=== PATIENT | female | born 1980 | race Caucasian/White ===

== ENCOUNTER 2019-09-12 17:57 | Inpatient (IN) | payer SELFPAY ==
[~2019-09-12] VITALS: Ht 160 cm; Wt 65.7 kg
[2019-09-12] MEDS ORDERED: PIPERACILLIN/TAZOBACTAM 3.375 GM in IV NORMAL SALINE 50ML 50 ML IV ONE (18:15)
[2019-09-12] MEDS ORDERED: IV NORMAL SALINE 1000ML BAG 1,000 ML IV ONE (18:15)
--- NOTE | 2019-09-12 18:24 | PHYS DOC ---
General Adult EDM: Chief Complaint: ABSCESS HPI: HPI: Patient is a 39 year old female IV drug user who presents to the ED today with an abscess on the left biceps that she noted a week ago. Patient reports using methamphetamine. Denies any fever. Review of Systems: Review of Systems: Constitutional: Denies fever or chills. [] Eyes: Denies change in visual acuity. [] HENT: Denies nasal congestion or sore throat. [] Respiratory: Denies cough or shortness of breath. [] Cardiovascular: Denies chest pain or edema. [] GI: Denies abdominal pain, nausea, vomiting, bloody stools or diarrhea. [] : Denies dysuria. [] Musculoskeletal: Denies back pain or joint pain. [] Integument: Reports abscess to the left biceps Neurologic: Denies headache, focal weakness or sensory changes. [] Psychiatric: Denies depression or anxiety. [] Heart Score: Risk Factors: Risk Factors: DM, Current or recent (<one month) smoker, HTN, HLP, family history of CAD, obesity. Risk Scores: Score 0 - 3: 2.5% MACE over next 6 weeks - Discharge Home Score 4 - 6: 20.3% MACE over next 6 weeks - Admit for Clinical Observation Score 7 - 10: 72.7% MACE over next 6 weeks - Early Invasive Strategies Current Medications: Current Medications Medications (Trade) Dose Ordered Sig/Corina Start Time Stop Time Status Last Admin Dose Admin Piperacillin Sod/ Tazobactam Sod 3.375 gm/Sodium Chloride 50 ml @ 100 mls/hr 1X ONCE 09/12/19 18:15 09/12/19 18:44 UNV Sodium Chloride 1,000 ml @ 1,000 mls/hr 1X ONCE 09/12/19 18:15 09/12/19 19:14 UNV Vancomycin HCl (Vanco Per Pharmacy) 1 each PRN DAILY PRN 09/12/19 18:15 UNV Physical Exam: PE: Constitutional: Well developed, well nourished, no acute distress, non-toxic appearance. [] HENT: Normocephalic, atraumatic, bilateral external ears normal, oropharynx moist, no oral exudates, nose normal. [] Eyes: PERRLA, EOMI, conjunctiva normal, no discharge. [] Neck: Normal range of motion, no tenderness, supple, no stridor. [] Cardiovascular:Heart rate regular rhythm, no murmur [] Lungs & Thorax: Bilateral breath sounds clear to auscultation [] Abdomen: Bowel sounds normal, soft, no tenderness, no masses, no pulsatile masses. [] Skin: Left biceps with an open wound approximately 3 x 3 cm with surrounding approximately 3 cm of cellulitis. Patient noted for multiple scabbed up regions throughout the left upper extremity, she admits to IV drug use of methamphetamine. +2 left radial pulse. Cap refill less than 2 seconds to left fingers. Back: No tenderness, no CVA tenderness. [] Extremities: No tenderness, no cyanosis, no clubbing, ROM intact, no edema. [] Neurologic: Alert and oriented X 3, normal motor function, normal sensory function, no focal deficits noted. [] Psychologic: tearful, flat affect. EKG: EKG: [] Radiology/Procedures: Radiology/Procedures: []PROCEDURE: FOREARM LEFT FOREARM LEFT, HUMERUS LEFT Clinical Indication: Reason: abscess, IV drug user / Comparison: None. Findings: There is no acute bone abnormality. The wrist, elbow, and shoulder joints appear intact. There is soft tissue swelling and subcutaneous edema and skin thickening with a small soft tissue defect centrally of the lateral distal upper arm. No radiopaque foreign body is identified. Left upper lung is clear. IMPRESSION: Along the lateral distal humerus there is subcutaneous edema and soft tissue swelling. There is skin thickening with a small soft tissue defect centrally. No radiopaque foreign body is seen. Electronically signed by: Chinmay Martinez MD (09/12/2019 6:41 PM) [facility] DICTATED and SIGNED BY: CHINMAY MARTINEZ MD DATE: 09/12/19 184 PROCEDURE: VENOUS UPPER EXTREMITY LEFT Left upper extremity venous Doppler ultrasound History: Reason: abscess, IV drug user / Comparison: None. Procedure: Color flow Doppler, Doppler spectral analysis, and 2D images are obtained with and without compression in the jugular vein, subclavian vein, axillary vein, brachial vein, radial vein, ulnar vein, and basilic and cephalic veins. Findings: At the area of interest, antecubital the subcutaneous tissues are echogenic with probably minimally increased vascularity. There is mild subcutaneous edema. There is skin thickening. There are punctate echogenicities that are dermal or just subdermal that may be subcutaneous air. No organized fluid collection is seen. There is normal color flow, augmentation, and compressibility of all visualized vein segments. No evidence of deep venous thrombus is present. IMPRESSION: 1. In the antecubital region there is skin thickening and the subcutaneous tissues are echogenic with mild subcutaneous edema. There appear to be foci of dermal and subdermal air. No organized abscess is seen. 2. No evidence of left upper extremity deep venous thrombosis. Electronically signed by: Chinmay Martinez MD (09/12/2019 7:29 PM) [facility] DICTATED and SIGNED BY: CHINMAY MARTINEZ MD DATE: 09/12/191928 Course & Med Decision Making: Course & Med Decision Making Pertinent Labs and Imaging studies reviewed. (See chart for details) This is a 39-year-old female patient who presents to the ED today with complaints of an open infected abscess on the left biceps from IV drug use of methamphetamine. She also noted for multiple cellulitis regions on the left u pper extremity. Wound was cultured. Patient was started on sepsis protocol including IV antibiotics and IV fluids. CBC with a normal WBC, CMP with no acute findings, lactic is normal. Vitals are stable. X-ray of the left humerus and left forearm are negative for any acute findings. Venous Doppler of the left upper extremity negative for DVT noted for drainable abscess Spoke with Dr. Edge who accepted patient for admission Carlos Disclaimer: Carlos Disclaimer: This electronic medical record was generated, in whole or in part, using a voice recognition dictation system. 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
[2019-09-12 18:30] LABS: BASO # 0.1 x10^3/uL (0.0-0.2); BASO % 1 % (0-3); EOS # 0.1 x10^3/uL (0.0-0.7); EOS % 1 % (0-3); HEMATOCRIT 27.4 % (36.0-47.0); LYMPH # 2.2 x10^3/uL (1.0-4.8); LYMPH % 35 % (24-48); MEAN CORPUSCULAR HEMOGLOBIN 24 pg (25-35); MEAN CORPUSCULAR HGB CONC 33 g/dL (31-37); MEAN CORPUSCULAR VOLUME 73 fL (79-100); MONO # 0.5 x10^3/uL (0.0-1.1); MONO % 8 % (0-9); NEUT # 3.6 x10^3/uL (1.8-7.7); NEUT % 56 % (31-73); PLATELET COUNT 421 x10^3/uL (140-400); RED BLOOD COUNT 3.74 x10^6/uL (3.50-5.40); RED CELL DISTRIBUTION WIDTH 18.2 % (11.5-14.5); WHITE BLOOD COUNT 6.4 x10^3/uL (4.0-11.0)
[2019-09-12 18:39] LABS: CALCIUM 8.7 mg/dL (8.5-10.1); CREATININE 0.8 mg/dL (0.6-1.0); GFR 79.4; POTASSIUM 3.8 mmol/L (3.5-5.1)
--- NOTE | 2019-09-12 18:44 | RAD ---
FOREARM LEFT, HUMERUS LEFT Clinical Indication: Reason: abscess, IV drug user / Comparison: None. Findings: There is no acute bone abnormality. The wrist, elbow, and shoulder joints appear intact. There is soft tissue swelling and subcutaneous edema and skin thickening with a small soft tissue defect centrally of the lateral distal upper arm. No radiopaque foreign body is identified. Left upper lung is clear. IMPRESSION: Along the lateral distal humerus there is subcutaneous edema and soft tissue swelling. There is skin thickening with a small soft tissue defect centrally. No radiopaque foreign body is seen. Electronically signed by: Chinmay Darden MD (09/12/2019 6:41 PM) [facility]
[2019-09-12] MEDS ORDERED: VANCOMYCIN 1.5 GM in IV NORMAL SALINE 500ML BAG 500 ML IV ONE (18:45)
[2019-09-12 18:46] LABS: ALBUMIN 3.5 g/dL (3.4-5.0); ALBUMIN/GLOBULIN RATIO 0.8 (1.0-1.7); TOTAL BILIRUBIN 0.1 mg/dL (0.2-1.0); TOTAL PROTEIN 7.9 g/dL (6.4-8.2)
[2019-09-12] MEDS: VANCOMYCIN PER PHARMACY MC PRN ×2 (18:48→20:02)
--- NOTE | 2019-09-12 19:32 | RAD ---
Left upper extremity venous Doppler ultrasound History: Reason: abscess, IV drug user / Comparison: None. Procedure: Color flow Doppler, Doppler spectral analysis, and 2D images are obtained with and without compression in the jugular vein, subclavian vein, axillary vein, brachial vein, radial vein, ulnar vein, and basilic and cephalic veins. Findings: At the area of interest, antecubital the subcutaneous tissues are echogenic with probably minimally increased vascularity. There is mild subcutaneous edema. There is skin thickening. There are punctate echogenicities that are dermal or just subdermal that may be subcutaneous air. No organized fluid collection is seen. There is normal color flow, augmentation, and compressibility of all visualized vein segments. No evidence of deep venous thrombus is present. IMPRESSION: 1. In the antecubital region there is skin thickening and the subcutaneous tissues are echogenic with mild subcutaneous edema. There appear to be foci of dermal and subdermal air. No organized abscess is seen. 2. No evidence of left upper extremity deep venous thrombosis. Electronically signed by: Chinmay Darden MD (09/12/2019 7:29 PM) [facility]
[2019-09-12 19:45] LABS: BARBITURATES NEG (NEG); BENZODIAZEPINES NEG (NEG); CANNABINOIDS NEG (NEG); COCAINE NEG (NEG); METHADONE NEG (NEG); OPIATES NEG (NEG); PHENCYCLIDINE NEG (NEG)
[2019-09-12] MEDS ORDERED: ACETAMINOPHEN 325 MG TABLET. PO PRN (19:45)
[2019-09-12] MEDS ORDERED: ONDANSETRON PF 4 MG/2 ML VIAL. IV PRN (19:45)
[2019-09-12 19:49] LABS: AMPHETAMINE/METHAMPHETAMINE POS (NEG)
--- NOTE | 2019-09-12 20:05 | NUR ---
Pharmacy Vancomycin Dosing Note S:Consulted to monitor and dose vancomycin started 09/12/19. O:CARLOS CHAO is a 39 year old F with Cellulitis Sepsis . Height: 5 feet, 3 inches Weight: 68.1 kg [place] Body Weight: 52.40 Adjusted Body Weight: 58.68 Dosing Weight: Actual Other Antibiotics: LABS: Last BUN: Last Creatinine: 0.8 Creatinine Clearance: 86 mL/min Last WBC: 6.4 Last Procalcitonin: Tmax (past 24 hours): 99 Microbiology: I/O: Drug Levels: Last level: on at Last dose given 09/12/19 at 1900 Vancomycin Dosing: Loading Dose: 1500 mg x1 Dosing Weight: Actual Target Trough: 15-20 A: Based on: WEIGHT AND RENAL FUNCTION, VANCOMYCIN 1.5GM IV BOLUS GIVEN. P: 1. Begin Vancomycin 1000 mg IV q12h TOMORROW 2. Follow up Trough level on 09/14/19 at 0630 3. Pharmacy will continue to monitor, follow and adjust therapy as needed. [facility], 09/12/192005
[2019-09-12 21:00] VITALS: BP 147/107
[2019-09-12 22:46] VITALS: BP 138/85
[2019-09-13 02:19] VITALS: BP 142/89
[2019-09-13] MEDS ORDERED: VANCOMYCIN 1 GM in IV NORMAL SALINE 250ML 250 ML IV SCH (07:00)
[2019-09-13 07:33] LABS: BASO % 1 % (0-3); EOS # 0.1 x10^3/uL (0.0-0.7); EOS % 2 % (0-3); HEMATOCRIT 26.9 % (36.0-47.0); HEMOGLOBIN 8.5 g/dL (12.0-15.5); LYMPH # 2.5 x10^3/uL (1.0-4.8); LYMPH % 46 % (24-48); MEAN CORPUSCULAR HEMOGLOBIN 24 pg (25-35); MEAN CORPUSCULAR HGB CONC 32 g/dL (31-37); MEAN CORPUSCULAR VOLUME 75 fL (79-100); MONO # 0.4 x10^3/uL (0.0-1.1); MONO % 7 % (0-9); NEUT # 2.4 x10^3/uL (1.8-7.7); NEUT % 45 % (31-73); PLATELET COUNT 353 x10^3/uL (140-400); RED BLOOD COUNT 3.61 x10^6/uL (3.50-5.40); RED CELL DISTRIBUTION WIDTH 18.3 % (11.5-14.5); WHITE BLOOD COUNT 5.4 x10^3/uL (4.0-11.0)
[2019-09-13 07:59] VITALS: BP 122/77
--- NOTE | 2019-09-13 08:46 | PDOC1 ---
History and Physical Date of Admission Date of Admission DATE: 09/13/19 TIME: 08:44 Identification/Chief Complaint Chief Complaint Left arm pain Source Source: Patient History of Present Illness History of Present Illness Ms Yanez is a 39 yo F w/ PMHx methamphetamine abuse, smoker who presents to the ED 09/12/2019 with complaints of an open infected abscess on the left biceps from IV drug use of methamphetamine. She also noted for multiple cellulitis regions on the left upper extremity. Wound was cultured. Patient was started on sepsis protocol including IV antibiotics and IV fluids. CBC with a normal WBC, CMP with no acute findings, lactic is normal. Vitals are stable. X-ray of the left humerus and left forearm are negative for any acute findings. Venous Doppler of the left upper extremity negative for DVT noted for drainable abscess. She is feeling much better, wound draining, open. She wishes to leave the hospital on oral antibiotics. I have advised her to await wound care evaluation. She denies any IV methamphetamine use states she smokes it and had been clean for 11 years until recently she had some difficulties. She did tell her triage nurse that she was shooting methamphetamine however. Past Medical History Cardiovascular: No pertinent hx Pulmonary: No pertinent hx Psych: Addictions Past Surgical History Past Surgical History: Tubal Ligation Family History Family History: Heart Disease, High Cholestrol, Hypertension Social History Smoke: 1 pack per day ALCOHOL: none Drugs: Crystal meth Current Problem List Problem List Problems Medical Problems: (1) Abscess of upper extremity Status: Acute (2) Methamphetamine use Status: Acute Current Medications Current Medications Current Medications Piperacillin Sod/ Tazobactam Sod 3.375 gm/Sodium Chloride 50 ml @ 100 mls/hr 1X ONCE IV Last administered on 09/12/19at 18:15; Start 09/12/19 at 18:15; Stop 09/12/19 at 18:44; Status DC Vancomycin HCl (Vanco Per Pharmacy) 1 each PRN DAILY PRN MC SEE COMMENTS Last administered on 09/12/19at 20:02; Start 09/12/19 at 18:15 Sodium Chloride 1,000 ml @ 1,000 mls/hr 1X ONCE IV Last administered on 09/12/19at 18:41; Start 09/12/19 at 18:15; Stop 09/12/19 at 19:14; Status DC Vancomycin HCl 1.5 gm/Sodium Chloride 500 ml @ 250 mls/hr 1X ONCE IV Last administered on 09/12/19at 18:45; Start 09/12/19 at 18:45; Stop 09/12/19 at 20:44; Status DC Ondansetron HCl (Zofran) 4 mg PRN Q8HRS PRN IV NAUSEA/VOMITING; Start 09/12/19 at 19:45; Stop 09/13/19 at 19:44 Acetaminophen (Tylenol) 650 mg PRN Q4HRS PRN PO FEVER > 100.3'F; Start 09/12/19 at 19:45; Stop 09/13/19 at 19:44 Vancomycin HCl 1 gm/Sodium Chloride 250 ml @ 250 mls/hr Q12H IV ; Start 09/13/19 at 07:00 Vancomycin HCl (Vancomycin Trough Level) 1 each 1X ONCE MC ; Start 09/14/19 at 06:30; Stop 09/14/19 at 06:31 Allergies Allergies: Coded Allergies: aspirin (Verified Allergy, Intermediate, 09/12/19) codeine (Verified Allergy, Intermediate, 09/12/19) ROS General: No: Chills, Night Sweats, Fatigue, Malaise, Appetite, Other PSYCHOLOGICAL ROS: No: Anxiety, Behavioral Disorder, Concentration difficultie, Decreased libido, Depression, Disorientation, Hallucinations, Hostility, Irritablity, Memory difficulties, Mood Swings, Obsessive thoughts, Physical abuse, Sexual abuse, Sleep disturbances, Suicidal ideation, Other Eyes: No Blurry vision, No Decreased vision, No Double vision, No Dry eyes, No Excessive tearing, No Eye Pain, No Itchy Eyes, No Loss of vision, No Photophobia, No Scotomata, No Uses contacts, No Uses glasses, No Other HEENT: No: Heacaches, Visual Changes, Hearing change, Nasal congestion, Nasal discharge, Oral lesions, Sinus pain, Sore Throat, Epistaxis, Sneezing, Snoring, Tinnitus, Vertigo, Vocal changes, Other ALLERGY AND IMMUNOLOGY: No: Hives, Insect Bite Sensitivity, Itchy/Watery Eyes, Nasal Congestion, Post Nasal Drip, Seasonal Allergies, Other Hematological and Lymphatic: No: Bleeding Problems, Blood Clots, Blood Transfusions, Brusing, Night Sweats, Pallor, Swollen Lymph Nodes, Other ENDOCRINE: No: Breast Changes, Galactorrhea, Hair Pattern Changes, Hot Flashes, Malaise/lethargy, Mood Swings, Palpitations, Polydipsia/polyuria, Skin Changes, Temperature Intolerance, Unexpected Weight Changes, Other Breast: No New/Changing Breast Lumps, No Nipple changes, No Nipple discharge, No Other Respiratory: No: Cough, Hemoptysis, Orthopnea, Pleuritic Pain, Shortness of breath, SOB with excertion, Sputum Changes, Stridor, Tachypnea, Wheezing, Other Cardiovascular: No Chest Pain, No Palpitations, No Orthopnea, No Paroxysmal Noc. Dyspnea, No Edema, No Lt Headedness, No Other Gastrointestinal: No Nausea, No Vomiting, No Abdominal Pain, No Diarrhea, No Constipation, No Melena, No Hematochezia, No Other Genitourinary: No Dysuria, No Frequency, No Incontinence, No Hematuria, No Retention, No Discharge, No Urgency, No Pain, No Flank Pain, No Other, No , No , No , No , No , No , No Musculoskeletal: No Gait Disturbance, No Joint Pain, No Joint Stiffness, No Joint Swelling, No Muscle Pain, No Muscular Weakness, No Pain In:, No Swelling In:, No Other Neurological: No Behavorial Changes, No Bowel/Bladder ControlChng, No Confusion, No Dizziness, No Gait Disturbance, No Headaches, No Impaired Coord/balance, No Memory Loss, No Numbness/Tingling, No Seizures, No Speech Problems, No Tremors, No Visual Changes, No Weakness, No Other Skin: Yes Rash, Yes Skin Lesion Changes; No Dry Skin, No Eczema, No Hair Changes, No Lumps, No Mole Changes, No Mottling, No Nail Changes, No Pruritus, No Other, No Acne Physical Exam General: Alert, Oriented X3, Cooperative, No acute distress HEENT: Atraumatic, PERRLA, EOMI, Mucous membr. moist/pink Lungs: Clear to auscultation, Normal air movement Heart: S1S2, RRR, no thrills, no rubs, no gallops, no murmurs Abdomen: Normal bowel sounds, Soft, No tenderness, No hepatosplenomegaly, No masses Rectal Exam: not examined Extremities: No clubbing, No cyanosis, No edema, Normal pulses, Other (Erythema 3x3 with central open wound in left antecubital fossa near biceps tendon, irrigate, no purulent discharge.) Skin: Other (Multiple sores over majority of her body in various stages of healing) Neuro: Normal gait, Normal speech, Strength at 5/5 X4 ext, Normal tone, Sensation intact, Cranial nerves 3-12 NL, Reflexes 2+ Psych/Mental Status: Mental status NL, Mood NL Vitals Vitals Vital Signs Date Time Temp Pulse Resp B/P (MAP) Pulse Ox O2 Delivery O2 Flow Rate FiO2 09/13/19 07:59 97.9 65 18 122/77 (92) 98 Room Air 97.9 Labs Labs Laboratory Tests Test 09/12/19 18:20 09/12/19 19:30 09/12/19 19:33 09/13/19 06:35 White Blood Count 6.4 x10^3/uL (4.0-11.0) 5.4 x10^3/uL (4.0-11.0) Red Blood Count 3.74 x10^6/uL (3.50-5.40) 3.61 x10^6/uL (3.50-5.40) Hemoglobin 9.0 g/dL (12.0-15.5) 8.5 g/dL (12.0-15.5) Hematocrit 27.4 % (36.0-47.0) 26.9 % (36.0-47.0) Mean Corpuscular Volume 73 fL (79-100) 75 fL (79-100) Mean Corpuscular Hemoglobin 24 pg (25-35) 24 pg (25-35) Mean Corpuscular Hemoglobin Concent 33 g/dL (31-37) 32 g/dL (31-37) Red Cell Distribution Width 18.2 % (11.5-14.5) 18.3 % (11.5-14.5) Platelet Count 421 x10^3/uL (140-400) 353 x10^3/uL (140-400) Neutrophils (%) (Auto) 56 % (31-73) 45 % (31-73) Lymphocytes (%) (Auto) 35 % (24-48) 46 % (24-48) Monocytes (%) (Auto) 8 % (0-9) 7 % (0-9) Eosinophils (%) (Auto) 1 % (0-3) 2 % (0-3) Basophils (%) (Auto) 1 % (0-3) 1 % (0-3) Neutrophils # (Auto) 3.6 x10^3/uL (1.8-7.7) 2.4 x10^3/uL (1.8-7.7) Lymphocytes # (Auto) 2.2 x10^3/uL (1.0-4.8) 2.5 x10^3/uL (1.0-4.8) Monocytes # (Auto) 0.5 x10^3/uL (0.0-1.1) 0.4 x10^3/uL (0.0-1.1) Eosinophils # (Auto) 0.1 x10^3/uL (0.0-0.7) 0.1 x10^3/uL (0.0-0.7) Basophils # (Auto) 0.1 x10^3/uL (0.0-0.2) 0.0 x10^3/uL (0.0-0.2) Sodium Level 140 mmol/L (136-145) Potassium Level 3.8 mmol/L (3.5-5.1) Chloride Level 105 mmol/L (98-107) Carbon Dioxide Level 23 mmol/L (21-32) Anion Gap 12 (6-14) Blood Urea Nitrogen 13 mg/dL (7-20) Creatinine 0.8 mg/dL (0.6-1.0) Estimated GFR (Cockcroft-Gault) 79.4 BUN/Creatinine Ratio 16 (6-20) Glucose Level 86 mg/dL (70-99) Lactic Acid Level 1.0 mmol/L (0.4-2.0) Calcium Level 8.7 mg/dL (8.5-10.1) Total Bilirubin 0.1 mg/dL (0.2-1.0) Aspartate Amino Transf (AST/SGOT) 14 U/L (15-37) Alanine Aminotransferase (ALT/SGPT) 13 U/L (14-59) Alkaline Phosphatase 98 U/L (46-116) Total Protein 7.9 g/dL (6.4-8.2) Albumin 3.5 g/dL (3.4-5.0) Albumin/Globulin Ratio 0.8 (1.0-1.7) Procalcitonin < 0.10 ng/mL (0.00-0.10) Urine Opiates Screen Neg (NEG) Urine Methadone Screen Neg (NEG) Urine Barbiturates Neg (NEG) Urine Phencyclidine Screen Neg (NEG) Urine Amphetamine/Methamphetamine Pos (NEG) Urine Benzodiazepines Screen Neg (NEG) Urine Cocaine Screen Neg (NEG) Urine Cannabinoids Screen Neg (NEG) Urine Ethyl Alcohol Neg (NEG) Bedside Urine HCG, Qualitative Hcg negative (Negative) Laboratory Tests Test 09/12/19 18:20 09/12/19 19:30 09/12/19 19:33 09/13/19 06:35 White Blood Count 6.4 x10^3/uL (4.0-11.0) 5.4 x10^3/uL (4.0-11.0) Red Blood Count 3.74 x10^6/uL (3.50-5.40) 3.61 x10^6/uL (3.50-5.40) Hemoglobin 9.0 g/dL (12.0-15.5) 8.5 g/dL (12.0-15.5) Hematocrit 27.4 % (36.0-47.0) 26.9 % (36.0-47.0) Mean Corpuscular Volume 73 fL (79-100) 75 fL (79-100) Mean Corpuscular Hemoglobin 24 pg (25-35) 24 pg (25-35) Mean Corpuscular Hemoglobin Concent 33 g/dL (31-37) 32 g/dL (31-37) Red Cell Distribution Width 18.2 % (11.5-14.5) 18.3 % (11.5-14.5) Platelet Count 421 x10^3/uL (140-400) 353 x10^3/uL (140-400) Neutrophils (%) (Auto) 56 % (31-73) 45 % (31-73) Lymphocytes (%) (Auto) 35 % (24-48) 46 % (24-48) Monocytes (%) (Auto) 8 % (0-9) 7 % (0-9) Eosinophils (%) (Auto) 1 % (0-3) 2 % (0-3) Basophils (%) (Auto) 1 % (0-3) 1 % (0-3) Neutrophils # (Auto) 3.6 x10^3/uL (1.8-7.7) 2.4 x10^3/uL (1.8-7.7) Lymphocytes # (Auto) 2.2 x10^3/uL (1.0-4.8) 2.5 x10^3/uL (1.0-4.8) Monocytes # (Auto) 0.5 x10^3/uL (0.0-1.1) 0.4 x10^3/uL (0.0-1.1) Eosinophils # (Auto) 0.1 x10^3/uL (0.0-0.7) 0.1 x10^3/uL (0.0-0.7) Basophils # (Auto) 0.1 x10^3/uL (0.0-0.2) 0.0 x10^3/uL (0.0-0.2) Sodium Level 140 mmol/L (136-145) Potassium Level 3.8 mmol/L (3.5-5.1) Chloride Level 105 mmol/L (98-107) Carbon Dioxide Level 23 mmol/L (21-32) Anion Gap 12 (6-14) Blood Urea Nitrogen 13 mg/dL (7-20) Creatinine 0.8 mg/dL (0.6-1.0) Estimated GFR (Cockcroft-Gault) 79.4 BUN/Creatinine Ratio 16 (6-20) Glucose Level 86 mg/dL (70-99) Lactic Acid Level 1.0 mmol/L (0.4-2.0) Calcium Level 8.7 mg/dL (8.5-10.1) Total Bilirubin 0.1 mg/dL (0.2-1.0) Aspartate Amino Transf (AST/SGOT) 14 U/L (15-37) Alanine Aminotransferase (ALT/SGPT) 13 U/L (14-59) Alkaline Phosphatase 98 U/L (46-116) Total Protein 7.9 g/dL (6.4-8.2) Albumin 3.5 g/dL (3.4-5.0) Albumin/Globulin Ratio 0.8 (1.0-1.7) Procalcitonin < 0.10 ng/mL (0.00-0.10) Urine Opiates Screen Neg (NEG) Urine Methadone Screen Neg (NEG) Urine Barbiturates Neg (NEG) Urine Phencyclidine Screen Neg (NEG) Urine Amphetamine/Methamphetamine Pos (NEG) Urine Benzodiazepines Screen Neg (NEG) Urine Cocaine Screen Neg (NEG) Urine Cannabinoids Screen Neg (NEG) Urine Ethyl Alcohol Neg (NEG) Bedside Urine HCG, Qualitative Hcg negative (Negative) Images Images Left arm XR: There is no acute bone abnormality. The wrist, elbow, and shoulder joints appear intact. There is soft tissue swelling and subcutaneous edema and skin thickening with a small soft tissue defect centrally of the lateral distal upper arm. No radiopaque foreign body is identified. Left upper lung is clear. IMPRESSION: Along the lateral distal humerus there is subcutaneous edema and soft tissue swelling. There is skin thickening with a small soft tissue defect centrally. No radiopaque foreign body is seen. Left upper extremity venous Doppler ultrasound: At the area of interest, antecubital the subcutaneous tissues are echogenic with probably minimally increased vascularity. There is mild subcutaneous edema. There is skin thickening. There are punctate echogenicities that are dermal or just subdermal that may be subcutaneous air. No organized fluid collection is seen. There is normal color flow, augmentation, and compressibility of all visualized vein segments. No evidence of deep venous thrombus is present. IMPRESSION: 1. In the antecubital region there is skin thickening and the subcutaneous tissues are echogenic with mild subcutaneous edema. There appear to be foci of dermal and subdermal air. No organized abscess is seen. 2. No evidence of left upper extremity deep venous thrombosis. VTE Prophylaxis Ordered VTE Prophylaxis Devices: No VTE Pharmacological Prophylaxi: Yes Assessment/Plan Assessment/Plan A/P: Cellulitis and abscess of left forearm - no pocket, no DVT, the abscess is open wound given it is less than 4 x 4 cm she can be instructed on local wound care and transition from vancomycin and Zosyn to oral Augmentin + Bactrim Smoker -counseled on cessation, offered nicotine patch FEN - Regular diet PPX - lovenox FULL CODE Dispo -patient for overnight antibiotics, I agree with patient outpatient th erapy may be adequate, though with her methamphetamine use and lifestyle she is at high risk for recurrent infections therefore Bactrim to cover for MRSA is appropriate Augmentin to cover for strep. MILI COTTER MD September 13, 2019 08:46
[2019-09-13] MEDS ORDERED: ONDANSETRON PF 4 MG/2 ML VIAL. IV PRN (09:00)
[2019-09-13] MEDS ORDERED: SMZ/TMP 800/160MG TABLET. PO SCH (11:30)
[2019-09-13] MEDS ORDERED: AMOXICILLIN/K CLAV 875/125MG TABLET. PO SCH (11:30)
[2019-09-13] MEDS ORDERED: AMOX1TAB11 PO (11:40)
[2019-09-13] MEDS ORDERED: Smz/Tmp 800/160MG PO (11:40)
--- NOTE | 2019-09-13 11:42 | PDOC3 ---
Discharge Summary Visit Information Date of Admission: September 12, 2019 Date of Discharge: September 13, 2019 Admitting Diagnosis: Abscess of LUE Final Diagnosis Problems Medical Problems: (1) Abscess of upper extremity Status: Acute (2) Methamphetamine use Status: Acute Brief Hospital Course Allergies Allergies Coded Allergies Type Severity Reaction Last Updated Verified aspirin Allergy Intermediate 09/12/19 Yes codeine Allergy Intermediate 09/12/19 Yes Vital Signs Vital Signs Date Time Temp Pulse Resp B/P (MAP) Pulse Ox O2 Delivery O2 Flow Rate FiO2 09/13/19 07:59 97.9 65 18 122/77 (92) 98 Room Air 97.9 Lab Results Laboratory Tests Test 09/12/19 18:20 09/12/19 19:30 09/12/19 19:33 09/13/19 06:35 White Blood Count 6.4 x10^3/uL (4.0-11.0) 5.4 x10^3/uL (4.0-11.0) Red Blood Count 3.74 x10^6/uL (3.50-5.40) 3.61 x10^6/uL (3.50-5.40) Hemoglobin 9.0 g/dL (12.0-15.5) 8.5 g/dL (12.0-15.5) Hematocrit 27.4 % (36.0-47.0) 26.9 % (36.0-47.0) Mean Corpuscular Volume 73 fL (79-100) 75 fL (79-100) Mean Corpuscular Hemoglobin 24 pg (25-35) 24 pg (25-35) Mean Corpuscular Hemoglobin Concent 33 g/dL (31-37) 32 g/dL (31-37) Red Cell Distribution Width 18.2 % (11.5-14.5) 18.3 % (11.5-14.5) Platelet Count 421 x10^3/uL (140-400) 353 x10^3/uL (140-400) Neutrophils (%) (Auto) 56 % (31-73) 45 % (31-73) Lymphocytes (%) (Auto) 35 % (24-48) 46 % (24-48) Monocytes (%) (Auto) 8 % (0-9) 7 % (0-9) Eosinophils (%) (Auto) 1 % (0-3) 2 % (0-3) Basophils (%) (Auto) 1 % (0-3) 1 % (0-3) Neutrophils # (Auto) 3.6 x10^3/uL (1.8-7.7) 2.4 x10^3/uL (1.8-7.7) Lymphocytes # (Auto) 2.2 x10^3/uL (1.0-4.8) 2.5 x10^3/uL (1.0-4.8) Monocytes # (Auto) 0.5 x10^3/uL (0.0-1.1) 0.4 x10^3/uL (0.0-1.1) Eosinophils # (Auto) 0.1 x10^3/uL (0.0-0.7) 0.1 x10^3/uL (0.0-0.7) Basophils # (Auto) 0.1 x10^3/uL (0.0-0.2) 0.0 x10^3/uL (0.0-0.2) Sodium Level 140 mmol/L (136-145) Potassium Level 3.8 mmol/L (3.5-5.1) Chloride Level 105 mmol/L (98-107) Carbon Dioxide Level 23 mmol/L (21-32) Anion Gap 12 (6-14) Blood Urea Nitrogen 13 mg/dL (7-20) Creatinine 0.8 mg/dL (0.6-1.0) Estimated GFR (Cockcroft-Gault) 79.4 BUN/Creatinine Ratio 16 (6-20) Glucose Level 86 mg/dL (70-99) Lactic Acid Level 1.0 mmol/L (0.4-2.0) Calcium Level 8.7 mg/dL (8.5-10.1) Total Bilirubin 0.1 mg/dL (0.2-1.0) Aspartate Amino Transf (AST/SGOT) 14 U/L (15-37) Alanine Aminotransferase (ALT/SGPT) 13 U/L (14-59) Alkaline Phosphatase 98 U/L (46-116) Total Protein 7.9 g/dL (6.4-8.2) Albumin 3.5 g/dL (3.4-5.0) Albumin/Globulin Ratio 0.8 (1.0-1.7) Procalcitonin < 0.10 ng/mL (0.00-0.10) Urine Opiates Screen Neg (NEG) Urine Methadone Screen Neg (NEG) Urine Barbiturates Neg (NEG) Urine Phencyclidine Screen Neg (NEG) Urine Amphetamine/Methamphetamine Pos (NEG) Urine Benzodiazepines Screen Neg (NEG) Urine Cocaine Screen Neg (NEG) Urine Cannabinoids Screen Neg (NEG) Urine Ethyl Alcohol Neg (NEG) Bedside Urine HCG, Qualitative Hcg negative (Negative) Laboratory Tests Test 09/12/19 18:20 09/12/19 19:30 09/12/19 19:33 09/13/19 06:35 White Blood Count 6.4 x10^3/uL (4.0-11.0) 5.4 x10^3/uL (4.0-11.0) Red Blood Count 3.74 x10^6/uL (3.50-5.40) 3.61 x10^6/uL (3.50-5.40) Hemoglobin 9.0 g/dL (12.0-15.5) 8.5 g/dL (12.0-15.5) Hematocrit 27.4 % (36.0-47.0) 26.9 % (36.0-47.0) Mean Corpuscular Volume 73 fL (79-100) 75 fL (79-100) Mean Corpuscular Hemoglobin 24 pg (25-35) 24 pg (25-35) Mean Corpuscular Hemoglobin Concent 33 g/dL (31-37) 32 g/dL (31-37) Red Cell Distribution Width 18.2 % (11.5-14.5) 18.3 % (11.5-14.5) Platelet Count 421 x10^3/uL (140-400) 353 x10^3/uL (140-400) Neutrophils (%) (Auto) 56 % (31-73) 45 % (31-73) Lymphocytes (%) (Auto) 35 % (24-48) 46 % (24-48) Monocytes (%) (Auto) 8 % (0-9) 7 % (0-9) Eosinophils (%) (Auto) 1 % (0-3) 2 % (0-3) Basophils (%) (Auto) 1 % (0-3) 1 % (0-3) Neutrophils # (Auto) 3.6 x10^3/uL (1.8-7.7) 2.4 x10^3/uL (1.8-7.7) Lymphocytes # (Auto) 2.2 x10^3/uL (1.0-4.8) 2.5 x10^3/uL (1.0-4.8) Monocytes # (Auto) 0.5 x10^3/uL (0.0-1.1) 0.4 x10^3/uL (0.0-1.1) Eosinophils # (Auto) 0.1 x10^3/uL (0.0-0.7) 0.1 x10^3/uL (0.0-0.7) Basophils # (Auto) 0.1 x10^3/uL (0.0-0.2) 0.0 x10^3/uL (0.0-0.2) Sodium Level 140 mmol/L (136-145) Potassium Level 3.8 mmol/L (3.5-5.1) Chloride Level 105 mmol/L (98-107) Carbon Dioxide Level 23 mmol/L (21-32) Anion Gap 12 (6-14) Blood Urea Nitrogen 13 mg/dL (7-20) Creatinine 0.8 mg/dL (0.6-1.0) Estimated GFR (Cockcroft-Gault) 79.4 BUN/Creatinine Ratio 16 (6-20) Glucose Level 86 mg/dL (70-99) Lactic Acid Level 1.0 mmol/L (0.4-2.0) Calcium Level 8.7 mg/dL (8.5-10.1) Total Bilirubin 0.1 mg/dL (0.2-1.0) Aspartate Amino Transf (AST/SGOT) 14 U/L (15-37) Alanine Aminotransferase (ALT/SGPT) 13 U/L (14-59) Alkaline Phosphatase 98 U/L (46-116) Total Protein 7.9 g/dL (6.4-8.2) Albumin 3.5 g/dL (3.4-5.0) Albumin/Globulin Ratio 0.8 (1.0-1.7) Procalcitonin < 0.10 ng/mL (0.00-0.10) Urine Opiates Screen Neg (NEG) Urine Methadone Screen Neg (NEG) Urine Barbiturates Neg (NEG) Urine Phencyclidine Screen Neg (NEG) Urine Amphetamine/Methamphetamine Pos (NEG) Urine Benzodiazepines Screen Neg (NEG) Urine Cocaine Screen Neg (NEG) Urine Cannabinoids Screen Neg (NEG) Urine Ethyl Alcohol Neg (NEG) Bedside Urine HCG, Qualitative Hcg negative (Negative) Brief Hospital Course Ms Yanez is a 39 yo F w/ PMHx methamphetamine abuse, smoker who presents to the ED 09/12/2019 with complaints of an open infected abscess on the left biceps from IV drug use of methamphetamine. She also noted for multiple cellulitis regions on the left upper extremity. Wound was cultured. Patient was started on sepsis protocol including IV antibiotics and IV fluids. CBC with a normal WBC, CMP with no acute findings, lactic is normal. Vitals are stable. X-ray of the left humerus and left forearm are negative for any acute findings. Venous Doppler of the left upper extremity negative for DVT noted for drainable abscess. She is feeling much better, wound draining, open. She wishes to leave the hospital on oral antibiotics. I have advised her to await wound care evaluation. She denies any IV methamphetamine use states she smokes it and had been clean for 11 years until recently she had some difficulties. She did tell her triage nurse that she was shooting methamphetamine however. Problem list: Cellulitis and abscess of left forearm - no pocket, no DVT, the abscess is open wound given it is less than 4 x 4 cm she can be instructed on local wound care and transition from vancomycin and Zosyn to oral Augmentin + Bactrim Smoker -counseled on cessation, offered nicotine patch Methamphetamine use - counseled on cessation and lifestyle she is at high risk for recurrent infections therefore Bactrim to cover for MRSA is appropriate Augmentin to cover for strep. Greater than 135 minutes spent on same day admit and d/c Discharge Information Condition at Discharge: Improved Follow Up: Weeks (1) Disposition/Orders: D/C to Home Scheduled Amoxicillin/Potassium Clav (Amox Tr-K Clv 875-125 Mg Tab) 1 Each Tablet, 1 TAB PO BID for Abscess for 10 Days, #20 Prescribed by: MILI COTTER MD on 09/13/19 1140 [Smz/Tmp 800/160MG] 1 TAB TABLET, 1 TAB PO BID for Abscess for 10 Days, #20 Prescribed by: MILI COTTER MD on 09/13/19 1140 MILI COTTER MD September 13, 2019 11:42
[2019-09-13 11:59] VITALS: BP 136/87
[2019-09-13 15:59] VITALS: BP 142/73
--- NOTE | 2019-09-13 19:22 | NUR ---
Patient is discharged to home. Discharge teaching completed. IV site discontinued without difficulty. Teaching done on wound care and dressings supplied. Patient is to follow up with wound care in one week. She has two prescriptions in hand and states that she has all of her personal belongings and understands her discharge teaching and follow up instructions. She is waiting for her ride as I leave, and a quick report given to Leigh JAIMES who will make sure that she is escorted out.
--- NOTE | 2019-09-13 20:20 | NUR ---
Pt. escorted out of hospital at this time by nurse aide. No questions asked.
[2019-09-13] MEDS ORDERED: LACTOBACILLUS RHAMNOSUS GG 1 CAPSULE. PO SCH (21:00)
== END 2019-09-13 20:20 | disposition home or self-care (01) | DRG 603 ==
LOC: ER 17:57 → 4 NORTH 20:28
PROVIDERS: ADMIT Internal Medicine; ATTEND Internal Medicine
DX: L02.414 Cutaneous abscess of left upper limb (principal); L03.114 Cellulitis of left upper limb; F17.210 Nicotine dependence, cigarettes, uncomplicated; Z82.49 Family history of ischemic heart disease and other diseases of the circulatory system; Z88.8 Allergy status to other drugs, medicaments and biological substances; Z79.899 Other long term (current) drug therapy; F15.10 Other stimulant abuse, uncomplicated; Z98.51 Tubal ligation status; Z71.6 Tobacco abuse counseling; B95.62 Methicillin resistant Staphylococcus aureus infection as the cause of diseases classified elsewhere; B95.5 Unspecified streptococcus as the cause of diseases classified elsewhere
CPT/HCPCS: 36415; 73060; 73090; 80053; 80307; 81025; 83605; 84145; 85025; 87040; 87070; 87071; 87075; 87077; 87186; 93971; 96365; 96368; 99285; J2543; J3370; J7030; J7040; J7050; G0378